=== PATIENT | male | born 1985 | race Two or more races ===

== ENCOUNTER 2022-05-22 21:08 | Emergency (ER) | payer SELFPAY ==
[~2022-05-22] VITALS: Ht 167.6 cm; Wt 81.6 kg
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
[2022-05-22] MEDS ORDERED: TDAP [DIPH/PERTUSSIS/TET] 0.5 ML VIAL IM ONE ×2 (21:26→21:30)
[2022-05-22] MEDS ORDERED: MORPHINE SULFATE INJ 4 MG/ML DISP.SYRIN ONE (21:26)
[2022-05-22] MEDS ORDERED: IOHEXOL-300 100 ML VIAL IV ONE (21:29)
[2022-05-22] MEDS ORDERED: IV NS 0.9% 250 ML IV ONE (21:29)
[2022-05-22] MEDS ORDERED: MORPHINE SULFATE INJ 2 MG/ML DISP.SYRIN IM ONE (21:30)
--- NOTE | 2022-05-22 21:36 | NUR ---
BROUGHT TO CT DEPT
--- NOTE | 2022-05-22 21:36 | NUR ---
IV CANNULA G18 INSERTED ON RIGHT AC.
--- NOTE | 2022-05-22 21:55 | NUR ---
CAME BACK FROM CT DEPT
--- NOTE | 2022-05-22 21:57 | NUR ---
LEATHER [employer]ODUCTION ARTISAN AT BEDSIDE
[2022-05-22] MEDS ORDERED: KETO10TA2 PO (22:55)
--- NOTE | 2022-05-22 22:58 | NUR ---
SPLINT APPLIED TO AFFECTED ARM
--- NOTE | 2022-05-22 23:44 | NUR ---
Patient discharged to home in stable condition. Written and verbal after care instructions given. Patient verbalizes understanding of instruction.
[2022-05-22 23:45] VITALS: BP 106/55
== END 2022-05-22 23:46 | disposition home or self-care (01) ==
LOC: ER 21:10
DX: S80.812A Abrasion, left lower leg, initial encounter (principal); S50.811A Abrasion of right forearm, initial encounter; R51.9 Headache, unspecified; V29.99XA Rider (driver) (passenger) of other motorcycle injured in unspecified traffic accident, initial encounter; Y93.89 Activity, other specified; Y92.89 Other specified places as the place of occurrence of the external cause; Y99.8 Other external cause status
CPT/HCPCS: 99285; 72125; 29125; 90471; 90715; 73610; 73552; 73090; 73630; 73060; 73564; 73590; 71260; 70450; 74177; 73110; 96372; L3763; J2270; J7050; Q9967